=== PATIENT | male | born 1975 | race Caucasian/White ===

== ENCOUNTER 2016-06-24 23:53 | Emergency (ER) | payer MEDICAID ==
[2016-06-25] MEDS ORDERED: ASPIRIN 81 MG CHEW TAB ONE (00:14)
== END 2016-06-25 04:16 | disposition home or self-care (01) ==
LOC: ER 23:53
DX: R07.89 Other chest pain (principal); F17.200 Nicotine dependence, unspecified, uncomplicated
CPT/HCPCS: 36415; 71010; 80053; 82550; 83735; 84484; 85025; 85610; 85730; 93005